=== PATIENT | male | born 1985 ===

== ENCOUNTER 2018-12-12 11:08 | Emergency (ER) | payer OTHER ==
[~2018-12-12] VITALS: Ht 180.3 cm; Wt 104.3 kg
== END 2018-12-12 12:02 | disposition home or self-care (01) ==
LOC: ER 11:08
DX: H57.12 Ocular pain, left eye (principal)

== ENCOUNTER 2019-04-10 06:39 | Emergency (ER) | payer OTHER ==
[~2019-04-10] VITALS: Ht 180.3 cm; Wt 95.3 kg
[2019-04-10] MEDS ORDERED: KETO10TA2 PO (07:21)
[2019-04-10] MEDS ORDERED: ORASEP SPRAY30 ML MM (07:21)
[2019-04-10] MEDS ORDERED: CEFUROXIME500 MG PO (07:21)
== END 2019-04-10 07:37 | disposition home or self-care (01) ==
LOC: ER 06:39 → EMR PED 06:40 → ER 06:40
DX: H60.8X1 Other otitis externa, right ear (principal)